=== PATIENT | male | born 1955 | race Caucasian/White ===

== ENCOUNTER 2016-04-27 01:17 | Inpatient (IN) | payer OTHER, MEDICAID ==
[~2016-04-27] VITALS: Ht 182.9 cm; Wt 92.8 kg
[2016-04-27] VITALS (10 sets, daily range): BP systolic 109–134; BP diastolic 60–82; PULSE 71–104; RESP 18–25; O2SAT 95–98
--- NOTE | 2016-04-27 01:41 | ED.REPORT ---
HPI-General Illness Date of Service Apr 27, 2016 ED Provider: Dr. Henry Walden M.D. A 61 year old homeless male with a history of recurrent lung cancer he has decided not to treat presents to the ED via EMS with pleuritic chest pain onset yesterday. The patient also reports exertional shortness of breath and worsening chronic productive cough (2yrs). He denies fever, chills, nausea, vomiting, hemoptysis, or other symptoms. EMS found the patient with a BP of 156/ 50, a pulse of 108, and otherwise normal vital signs. He was given 324mg ASA and Nitro x3, with relief of his pain. Nursing Notes Stated Complaint: CHEST PAIN Chief Complaint: Chest Pain Nursing Notes Reviewed: Yes Allergies: Coded Allergies: chlorhexidine (Verified Allergy, Intermediate, Rash, 04/27/16) "It's that clear stuff that they cleaned my skin off, no the alcohol pads." General Time Seen by MD: 01:40 Chief Complaint Chest pain Hx Obtained From: Patient Arrived By: Ambulance Sudden in Onset?: No Onset Occurred: Yesterday Symptom Duration: Since onset Location: : Chest Quality: Painful, Pleuritic Severity: Current: Moderate Severity: Maximum: Moderate Associated with: Reports: Cough, Shortness of breath, Denies: Fever, Nausea, Vomiting Pertinent Negative: Relieved by nothing Context Related History: Reports Cancer Recent Healthcare: No recent doctor visit Past Medical History Past Medical History Recurrent lung cancer Past Surgical History None reported Smoking History Current Every Day Smoker Social History Alcohol Use: >5 per day Other Social History: Homeless Ambulatory Status Independent Review of Systems + Chronic productive cough Full Review of Systems Constitutional: Denies: Chills, Fever Respiratory: Reports: Pleuritic pain, Shortness of breath (Exertional), Denies: Hemoptysis Cardiovascular: Reports: Chest pain GI: Denies: Nausea, Vomiting Complete sys rev & neg: except as marked. Physical Exam Vital Signs Vital Signs Date Time Temp Pulse Resp B/P Pulse Ox O2 Delivery O2 Flow Rate FiO2 04/27/16 02:31 103 25 97 Room Air 04/27/16 01:33 36.9 104 18 109/67 97 Room Air Initial VS: Reviewed Head / Eyes: Atraumatic, Normocephalic ENT: Conjunctiva normal, No scleral icterus Neck: Supple, Full range of motion Extremities: Vascular intact, Neuro intact, No swelling Skin: Warm, Dry, No cyanosis Neurologic: Alert, Oriented, Nonfocal Psychiatric: Mood/affect normal, Behavior normal, Normal thought content General/Constitutional: Awake, Alert Respiratory / Chest: No respiratory distress Splinting and obvious discomfort with breathing Dull breath sounds at right base Cardiovascular: Heart rate NL, Regular rhythm, Heart sounds NL Abdomen: Soft Tenderness/Guarding/Rebound: Positive: Tender diffuse, Tender epigastric (Worst ) Interpretation & Diagnostics Lab Results Interpretation Result Diagram: 04/27/16 0230 04/27/16 0230 Test 04/27/16 02:30 White Blood Count 13.6th/mm3 (3.8-10.1) Red Blood Count 4.30mil/mm3 (4.40-5.80) Hemoglobin 13.4g/dL (13.8-17.2) Hematocrit 39.2% (41.0-50.0) Mean Corpuscular Volume 91.2fL (81-100) Mean Corpuscular Hemoglobin 31.2pg (27.0-35.0) Mean Corpuscular Hemoglobin Concent 34.2% (32.0-37.0) Red Cell Distribution Width 14.0% (12.3-15.4) Platelet Count 204bil/L (150-400) Neutrophils (%) (Auto) 77.2% (40-74) Lymphocytes (%) (Auto) 12.3% (14-46) Monocytes (%) (Auto) 9.4% (4-12) Eosinophils (%) (Auto) 0.6% (0-5) Basophils (%) (Auto) 0.2% (0-3) Sodium Level 135mEq/L (134-144) Potassium Level 4.0mEq/L (3.5-5.2) Chloride Level 99mEq/L (97-108) Carbon Dioxide Level 21mmol/L (18-29) Blood Urea Nitrogen 13mg/dL (8-27) Creatinine 0.58mg/dL (0.76-1.27) Estimat Glomerular Filtration Rate 152mL/min (>59) Glucose Level 106mg/dL (60-99) Calcium Level 8.9mg/dL (8.5-10.1) Magnesium Level 1.7mg/dL (1.6-2.6) Total Bilirubin 0.6mg/dL (0.0-1.2) Aspartate Amino Transf (AST/SGOT) 37U/L (0-50) Alanine Aminotransferase (ALT/SGPT) 18U/L (0-44) Alkaline Phosphatase 112U/L (25-160) Troponin T 0.010ug/L (0.0-0.011) Total Protein 7.2g/dL (6.4-8.4) Albumin 3.9g/dL (3.4-5.0) Lipase 31U/L (13-60) Hold Sanchez Top Tube Received (Received) ECG Interpretation ECG Interpretation: Ectopic atrial tachycardia, unifocal rate 103 Left axis deviation Nonspecific ST and T-wave changes in lateral leads Time: 01:48 Interpreted by: ED physician X-Ray Chest Interpretation Chest Xray Interpretation: Right pleural effusion and mass No pneumothorax View: AP & lat Interpretation / Wet Read by: Wet read ED physician CT Chest Interpretation CONCLUSION: No CT evidence of pulmonary emboli. Large right pleural effusion with compression atelectasis of the adjacent lung. Right perihilar mass with probable developing postobstructive pneumonia. Transmitted to ED by Solomon Diego M.D. at 04/27/2016 - 4:23:44 AM PDT Study type: CT pulm angiogram Interpretation / Wet Read by: Interpret - Radiologist CT Abd / Pelvis Interpretation CONCLUSION: There appears to be slight wall thickening of the gallbladder with some adjacent haziness/inflammation/fluid raising the possibility of early cholecystitis. There is some free fluid in the pelvis. There is a right pleural effusion compression atelectasis of the adjacent lung in the right perihilar mass with probable developing perihilar postobstructive pneumonia. Findings discussed with Dr. Walden at 04/27/2016 4:26:45 PM PDT. He states the patient is quite tender in the right upper quadrant. Study type: Abdominal CT IV contrast Interpretation / Wet Read by: Interpret - Radiologist, Storm w radiologist Re-Eval/Medical Decision Med Decision/Clinical Course 61-year-old with recurrent lung cancer, and self elected not treatment of that lung cancer, presents with a sharp pleuritic pain of relatively sudden onset. He has pain also in his epigastrium and right upper quadrant on palpation. CT angios shows no evidence of pulmonary embolus, but postobstructive pneumonia is present. Cholecystitis is suspected based on the abdominal CAT scan. No other significant findings. He had these possibilities discussed in detail in light of his election not to treat his cancer. He is willing to receive antibiotics for her pneumonia, and if he needed a cholecystectomy, he would undergo that as well. In general, he wants DO NOT RESUSCITATE status in the event of an actual arrest. A POLST form was filled out to that effect. Time of Eval: 04:30 Patient Status: Condition improved Re-Evaluation/Progress Note: Patient rechecked. He is feeling much better. Discussed with patient CT, x-ray, and lab results, diagnosis, and plan for admit. Patient agrees with plan for care and all questions were addressed. Time of Eval: 05:20 Patient Status: Condition improved Re-Evaluation/Progress Note: Discussed with patient POLST form and resuscitation status. Patient is DNR. Consultation : Referral / Consult Name: Ximena Fisher MD Consulted With: Hospitalist Call Returned at: 04:40 Range Manager: Agrees with eval, Agrees with plan, Accepts admit Counseled Regarding: Diagnosis, Lab results, Need for admission Discharge & Departure Shift Change Sign-Out Response to Therapy: Improved Primary Impression: Postobstructive pneumonia Additional Impressions: Lung cancer Laterality: right Lung location: lower lobe of lung Qualified Code: C34.31 - Malignant neoplasm of lower lobe, right bronchus or lung Pleural effusion Cholecystitis Disposition: ADMITTED TO HOSPITAL Discharge Condition All VS Reviewed: Yes Condition: Improved Referrals: [facility] Attestation Portions of this note were transcribed by Mary Sherman. I, Dr. Walden, personally performed the history, physical exam, and medical decision-making; I reviewed and confirmed the accuracy of the information in the transcribed note. Signed by: Nate Clement, 04/27/2016, 05:00 copies to: [facility] Henry Walden MD Apr 27, 2016 01:40 MARY SHERMAN Apr 27, 2016 01:49
[2016-04-27] MEDS ORDERED: Albuterol-Ipratropium 3 mL Inhalation Solution NEB ONE (02:25)
[2016-04-27] MEDS ORDERED: Albuterol 2.5 mg/3 mL Inhalation Solution NEB ONE (02:25)
[2016-04-27] MEDS ORDERED: Dexamethasone Inj 10 MG in 0.9% Sodium Chloride-Pha MIX 50 ML IV ONE (02:25)
[2016-04-27 02:44] LABS: BASOPHILS % (AUTO) 0.2 % (0-3); EOSINOPHILS % (AUTO) 0.6 % (0-5); MONOCYTES % (AUTO) 9.4 % (4-12); Mean Corpuscular Hemoglobin 31.2 pg (27.0-35.0); Mean Corpuscular Volume 91.2 fL (81-100); NEUTROPHILS % (AUTO) 77.2 % (40-74); Platelet Count 204 bil/L (150-400)
[2016-04-27 03:16] LABS: Magnesium 1.7 mg/dL (1.6-2.6); TROPONIN T 0.01 ug/L (0.0-0.011)
[2016-04-27] MEDS ORDERED: Piperacillin-Tazo 3.375 Gm Inj 3.375 GM in Dextrose 5% Minibag Plus 50 ML IV ONE (04:40)
[2016-04-27] MEDS ORDERED: Azithromycin Inj 500 MG in Dextrose 5% w/Vial Mate 250 ML IV ONE (04:40)
[2016-04-27] MEDS: Multivit-Miner-Folic Acid-Iron Tablet PO SCH ×2 (05:10→10:10)
[2016-04-27] MEDS ORDERED: Ondansetron 2 mg/mL 2 mL Inj IVPUSH PRN ×2 (05:10→05:20)
[2016-04-27] MEDS ORDERED: Lactated Ringer's 1,000 ML IV SCH (05:16)
[2016-04-27] MEDS ORDERED: HYDROcodone-APAP 5-325 mg Tablet PO PRN (05:20)
[2016-04-27] MEDS ORDERED: Alum-Mag Hydrox-Simeth 30 mL Suspension PO PRN (05:20)
--- NOTE | 2016-04-27 05:41 | PCM.HPMED ---
Subjective Date of Service Apr 27, 2016 Primary Provider: Admitting Physician: Ximena Fisher MD Primary Care Physician: Nopcp Attending Physician: Ximena Fisher MD Admit Status: From the Emergency Department, Full Admit, Remote Telemetry Chief Complaint: Increasing cough and right upper quadrant abdominal pain History of Present Illness: This is a 61-year-old male has a history of lung cancer diagnosed in 2010. He had undergone radiation therapy along with tumor resection and chemotherapy and approximately for one year he was in remission but recurred and did not want to undergo any further treatments. He is homeless currently and presents with several month history of aggressive cough. He over the past few days has developed right upper quadrant abdominal pain. Denies any fevers chills. Denies any nausea vomiting. He denies any hemoptysis. His evaluation in the emergency room includes a CTA of chest PE protocol which reveals no evidence of pulmonary emboli. Large right pleural effusion with compression atelectasis of the adjacent lung is noted. Right perihilar mass with probable developing postobstructive is seen. CT of abdomen and pelvis reveals slight wall thickening of the gallbladder with some adjacent haziness and inflammation and fluid raising the possibility of early cholecystitis. WBCs is 13.6 with 77% polys 12% lymphs. Review of Systems: Patient denies any alteration in bowel movements. Denies any urinary frequency or burning. Denies any prior history of alcohol withdrawal. All other review of systems are reviewed and are negative except for as in history of present illness. Allergies Coded Allergies: chlorhexidine (Verified Allergy, Intermediate, Rash, 04/27/16) "It's that clear stuff that they cleaned my skin off, no the alcohol pads." Home Medications None PMH History of lung cancer diagnosed in 2010 History of alcohol dependence drinks half fifth of vodka daily Tobacco dependence Family History No history of cardiovascular disease Social History Hx Alcohol Use: Yes (1/2 a fifth per day) Hx Substance Use: Yes (marijuana, sometimes meth) Smoking Status: Current Every Day Smoker Living Arrangement: Alone Homeless Exam Vital Signs Vital Sign - Last Date Time Temp Pulse Resp B/P Pulse Ox O2 Delivery O2 Flow Rate FiO2 04/27/16 05:08 36.5 100 20 129/76 95 Room Air Exam Constitutional: Middle-aged male who is disheveled but pleasant and cooperative Head: Normocephalic/atraumatic Eyes: PERRLA DC EOMI Mouth: Dry mucosa Neck: Carotids plus over 4 without bruits Chest :reveals decreased breath sounds approximately third way up his right base and otherwise added expiratory wheezes diffusely Cor: Regular rate and rhythm S1-S2 without murmur Abdomen: Soft there is tenderness in the epigastrium and right upper quadrant, no rebound no guarding bowel sounds are present Extremities: Trace pedal edema Skin: No rashes Psych: Mood and affect are appropriate Neuro: Alert and oriented 3, motor strength is intact bilaterally Lab and Diagnostics Labs Laboratory Tests 72 Hours Test 04/27/16 02:30 White Blood Count 13.6th/mm3 (3.8-10.1) Red Blood Count 4.30mil/mm3 (4.40-5.80) Hemoglobin 13.4g/dL (13.8-17.2) Hematocrit 39.2% (41.0-50.0) Mean Corpuscular Volume 91.2fL (81-100) Mean Corpuscular Hemoglobin 31.2pg (27.0-35.0) Mean Corpuscular Hemoglobin Concent 34.2% (32.0-37.0) Red Cell Distribution Width 14.0% (12.3-15.4) Platelet Count 204bil/L (150-400) Neutrophils (%) (Auto) 77.2% (40-74) Lymphocytes (%) (Auto) 12.3% (14-46) Monocytes (%) (Auto) 9.4% (4-12) Eosinophils (%) (Auto) 0.6% (0-5) Basophils (%) (Auto) 0.2% (0-3) Sodium Level 135mEq/L (134-144) Potassium Level 4.0mEq/L (3.5-5.2) Chloride Level 99mEq/L (97-108) Carbon Dioxide Level 21mmol/L (18-29) Blood Urea Nitrogen 13mg/dL (8-27) Creatinine 0.58mg/dL (0.76-1.27) Estimat Glomerular Filtration Rate 152mL/min (>59) Glucose Level 106mg/dL (60-99) Calcium Level 8.9mg/dL (8.5-10.1) Magnesium Level 1.7mg/dL (1.6-2.6) Total Bilirubin 0.6mg/dL (0.0-1.2) Aspartate Amino Transf (AST/SGOT) 37U/L (0-50) Alanine Aminotransferase (ALT/SGPT) 18U/L (0-44) Alkaline Phosphatase 112U/L (25-160) Troponin T 0.010ug/L (0.0-0.011) Total Protein 7.2g/dL (6.4-8.4) Albumin 3.9g/dL (3.4-5.0) Lipase 31U/L (13-60) Hold Sanchez Top Tube Received (Received) Result Diagram: 04/27/16 0230 04/27/16 0230 X-Rays, CTs and MRIs See history of present illness 12-lead ECG Sinus at a rate of 103, QTC is 485 Assessment & Plan # Postobstructive pneumonia with right-sided pleural effusion, acute, present on admission - We will treat with IV Zosyn and IV azithromycin Obtain sputum for Gram stain and culture, PCR respiratory, urine for Legionella antigen, urine for strep pneumonia antigen Consider thoracentesis of pleural effusion for therapeutic and diagnostic reasons Blood culture 2 # Acute cholecystitis, present on admission Currently on IV Zosyn Check abdominal ultrasound today Consider general surgery consultation after ultrasound is obtained # History of lung carcinoma, chronic, present on admission Patient has made the decision of years ago for further treatment and appears to that decision # EtOH dependence, chronic, present on admission Placed on CIWA protocol and monitor for signs and symptoms of alcohol withdrawal We will give thiamine, multiple vitamin, folate limitation Check ammonia level, blood alcohol level, urine drug screen # Tobacco dependence, chronic, present on admission We will place on nicotine patch topically daily # DVT prophylaxis We will place on subcutaneous heparin for likely and if INR,PTT come back elevated will DC # CODE STATUS Discussed with patient and wishes DNR/DNI Pain Evaluation: Adequate Pain Control GI Prophylaxis: H2 [place] VTE Prophylaxis: Sub-Q Heparin (Unfractionated) VTE Mechanical Devices: Intermittant Pneumatic CD Resuscitation Status: DNR/DNI:Do Not Resuscitate/Intubate Time spent 60 minutes Ximena Fisher MD Apr 27, 2016 05:41
[2016-04-27 06:32] LABS: INR 0.94 ratio
[2016-04-27] MEDS: 0.9% Sodium Chloride 1,000 ML IV SCH ×3 (06:42→21:33)
--- NOTE | 2016-04-27 07:22 | NUR ---
ADMIT NOTE [place] [facility] [place] [facility]600. Pt alert and oriented. Pt was able to ambulate from ER stretcher to bed. Pt uses cane for ambulatory aid. VS obtained. Pt on RA, VSS. Pt placed on remote telemetry, school lunch monitor notified. IVF administered. Pt NPO, explained that possible tests may be ordered that PO intake may interfere with. Swabs sent for respiratory PCR panel. Pt placed on respiratory precautions, explained to pt. UA sent. Pt aware that sputum sample needed, specimen cup at bedside. Pt mentioned wound to left great toe. Pt states "it was from joyce bite, but it got infected about 4 weeks ago, and is just not healing." Wound consult ordered. Call light in reach. Intentional rounding.
[2016-04-27 08:23] LABS: APPEARANCE,URINE CLEAR (CLEAR,HAZY); COLOR,URINE STRAW (YELLOW); OCCULT BLOOD,URINE NEGATIVE (NEGATIVE); UROBILINOGEN,URINE NORMAL (NORMAL)
[2016-04-27] MEDS ORDERED: Magnesium Sulf 2 Gm/50mL Water 2 GM in IV Premix 1 EACH IV ONE (08:35)
[2016-04-27] MEDS ORDERED: IBUP200C PO (08:53)
[2016-04-27] MEDS ORDERED: ALBU8.5H2 INHALATION (08:53)
--- NOTE | 2016-04-27 09:57 | DRSVH ---
PROCEDURE: X-RAY CHEST, TWO VIEWS ([id number]) INDICATIONS: PLEURITC CHEST PAIN, LUNG CANCER TECHNIQUE: 2 views of the chest were acquired. COMPARISON: None. FINDINGS: Surgical changes and devices: Left chest Port-A-Cath with tube tip projected over the lower SVC. Lungs and pleura: Large right perihilar mass is present and there is a small right pleural effusion a nd peripheral and basilar airspace opacity. Left lung is clear. Mediastinum: Mediastinal contours are normal. Heart size is normal. Bones and chest wall: No suspicious bony abnormalities. Soft tissues appear unremarkable. IMPRESSION: Large right perihilar mass present with small right pleural effusion and peripheral/basil ar airspace opacity likely related to developing postobstructive pneumonia. Correlate clinically. Dictated by: Tonio TURNER Interpreted: Viridiana Herman MD on 04/27/2016 at 9:55 Transcribed by: DIEGO on 04/27/2016 at 9:56 Approved by: Viridiana Herman M.D. on 04/27/2016 at 21:14
[2016-04-27] MEDS: Famotidine Inj 20 MG in IV Premix 1 EACH IV SCH ×2 (10:05→21:34)
[2016-04-27] MEDS: Heparin 5,000 Unit/mL Inj SUBQ SCH ×3 (10:08→23:52)
--- NOTE | 2016-04-27 12:09 | DRSVH ---
PROCEDURE: CT ANGIO CHEST PULMONARY EMBOLISM ([id number]) INDICATIONS: cp, sob, lung ca recurrent TECHNIQUE: After the administration of intravenous contrast, 2 mm thick sections acquired from the pulmonary api alireza to the posterior costophrenic angles. 3-dimensional maximum intensity projection (MIP) coronal a nd sagittal reformats were then acquired through the thorax. For radiation dose reduction, the follo wing was used: automated exposure control, adjustment of mA and/or kV according to patient size. COMPARISON: None. FINDINGS: Image quality: Excellent. Pulmonary arteries: Pulmonary arteries are normal in size, and demonstrate no intraluminal filling d efects to suggest central pulmonary embolism. Lungs and pleura: There is a mild/moderate right pleural effusions with areas of superimposed consoli dation including a right suprahilar focus of consolidative density. Mediastinum: Heart size is normal, without pericardial effusion. No mediastinal or hilar adenopathy . Thoracic aorta is normal in caliber and enhancement. Esophagus is normal in caliber, without hiat al hernia. Bones and chest wall: No suspicious bony lesions. Ribs and thoracic spine appear intact throughout. Thyroid gland is unremarkable. No axillary or supraclavicular adenopathy. Abdomen: Visualized upper abdominal solid organs appear normal in the early arterial phase of enhanc ement. IMPRESSION: 1. No visualized pulmonary embolism. 2. Moderate right pleural effusion with areas of consolidative density most prominent in the right pe rihilar region. While this could represent pneumonia and/or atelectasis, underlying neoplastic mass s hould be considered. No priors are available for comparison. Clinical interval imaging followup is re commended to document resolution or evaluation of potential underlying mass. Dictated by: Viridiana Herman M.D. on 04/27/2016 at 12:06 Approved by: Viridiana Herman M.D. on 04/27/2016 at 12:08
--- NOTE | 2016-04-27 12:12 | DRSVH ---
PROCEDURE: CT ABDOMEN AND PELVIS WITH CONTRAST ([id number]) INDICATIONS: epigastric pain, lung ca TECHNIQUE: After the administration of intravenous contrast, 5 mm thick sections acquired from the diaphragm to the symphysis. 5 mm coronal and sagittal reformats were acquired. For radiation dose reduction, the following was used: automated exposure control, adjustment of mA and/or kV according to patient siz e. COMPARISON: None. FINDINGS: Image quality: Excellent. ABDOMEN: Lung bases: Partially visualized moderate right effusion with superimpose consolidative densities mary beth ecially in the right superhilar region are noted. Solid organs: Liver and spleen are normal in size and enhancement. Gallbladder demonstrates a mild appearance of wall thickening.. Biliary system is non dilated. Pancreas enhances normally. No adre nal nodules. Kidneys demonstrate normal size and enhancement, without hydronephrosis. Peritoneum and bowel: Bowel loops demonstrate normal wall thickness and caliber. Mild dependent pelv ic fluid is present. Nodes and vessels: No retroperitoneal or mesenteric adenopathy by size criteria. Aorta and inferior vena cava are normal in size. Miscellaneous: No ventral hernias. PELVIS: Genitourinary: Bladder wall thickness is normal. Miscellaneous: No inguinal hernias or adenopathy. Bones: No suspicious bony lesions. No vertebral body compression fractures. IMPRESSION: 1. Moderate right pleural effusion with areas of superimpose consolidative density including the righ t perihilar region. While this could represent compressive atelectasis and/or developing pneumonia, a cristopher of underlying mass lesion such as neoplasm cannot be excluded. Recommend continued neutral imagin g and clinical followup to document resolution. 2. Mild appearance of gallbladder wall thickening and trace pericholecystic stranding. No visualized stones. Findings could be related to early changes of cholecystitis. Ultrasound may be helpful for ad ditional evaluation. Dictated by: Viridiana Herman M.D. on 04/27/2016 at 12:08 Approved by: Viridiana Herman M.D. on 04/27/2016 at 12:10
[2016-04-27] MEDS ORDERED: Piperacillin-Tazo 3.375 Gm Inj 3.375 GM in Dextrose 5% Minibag Plus 50 ML IV SCH (13:00)
--- NOTE | 2016-04-27 13:52 | NUR ---
Wound Care Wound evaluation orders received, pt seen at bedside. 61 yo male admitted with difficulty breathing and a history of lung cancer. Reports getting his left foot frostbitten 4 weeks ago or so. Patient presents with a 1.5 cm skin defect at his left great toe tip with surrounding callous formation. Ulcer is superficial,does not drain and was cleaned and covered with xeroform and bandaid. Likely ulcer is associated with his frostbite, is not infected at this time. Should heal without difficulty. Nursing to change dressing daily.
--- NOTE | 2016-04-27 14:46 | DRSVH ---
PROCEDURE: US ABDOMEN, LIMITED ([id number]) INDICATIONS: cholecystitis TECHNIQUE: Real-time focused scanning was performed of the abdomen, with image documentation. COMPARISON: [facility], CT, CT ABD PELVIS W CON, 04/27/2016, 3:28. FINDINGS: Limited exam demonstrates no stones. Gallbladder wall is thickened and edematous measuring 9 mm. No biliary dilatation. IMPRESSION: Abnormal appearance of the gallbladder with thickened edematous gallbladder wall. Acalc ulus cholecystitis cannot be excluded. Correlate clinically. Dictated by: Tonio TURNER Interpreted: Viridiana Herman MD on 04/27/2016 at 14:44 Transcribed by: DIEGO on 04/27/2016 at 14:46 Approved by: Viridiana Herman M.D. on 04/27/2016 at 21:50
--- NOTE | 2016-04-27 16:03 | CONS ---
[address] [address] CONSULTATION REPORT PATIENT: CHRIS BARFIELD : 1955 MR#: [id number] ADMIT: 04/27/2016 JOB ID: [id number] DATE OF SERVICE: 04/27/2016 CHIEF COMPLAINT/IDENTIFICATION: Dr. Mchugh has asked me to see this 61-year-old man with possible symptomatic gallbladder disease. HISTORY OF PRESENT ILLNESS: The patient has known unresectable right lung cancer that has progressed on chemotherapy, for which he has decided to have no further chemotherapy. He notes for several weeks that he has had some midepigastric pain primarily when he bends over or when he leans forward. He had thought that this was related to pressure on his xiphoid. Over the past week this pain has gotten worse and in discussions with him, it is difficult to sort out how much of this is pain and how much of this is shortness of breath. Yesterday, he was having so much chest pain around the xiphoid when he would try to take a deep breath that he was concerned that he was having a heart attack. He was brought to the hospital, where he was admitted to the Medicine service here. After workup with a CT angiogram of the chest for pulmonary emboli, he likely has a postobstructive pneumonia on the right lung. As well, his CAT scan demonstrated some thickening of the gallbladder. He was admitted to the Hospitalist service on IV Zosyn and azithromycin. This morning he was evaluated for possible cholecystitis with an ultrasound, and I am asked to follow up on those results. PAST MEDICAL HISTORY: History of alcohol dependence, history of tobacco dependence, has started smoking again since the decision not to proceed with chemotherapy was initiated. HOME MEDICATIONS: None. ALLERGIES: CHLORHEXIDINE. SOCIAL HISTORY: He drinks alcohol on a daily basis, and currently smokes every day and occasionally uses marijuana and methamphetamine. Reportedly does not have a home. FAMILY HISTORY: Noncontributory. REVIEW OF SYSTEMS: He has some peripheral neuropathy of the feet, and had some frostbite of his left great toe in the past few months. PHYSICAL EXAMINATION: BMI is 27.4. Vital signs are within normal limits, though his pulse is in the high 90s. His room air saturation is 95-98. His sclerae are clear. He has a prominent xiphoid, mild mid epigastric tenderness to palpation, no real Villafana sign, no right upper quadrant tenderness. LABORATORIES: His white count is 13, his hematocrit is 39. Chemistries show normal electrolytes. Normal LFT. Lipase was 31. IMAGING: I have reviewed his chest CT, his abdominal CT, his abdominal ultrasound. The latter two studies demonstrate that he does have gallbladder wall thickening. Neither study shows any stones. There seems to be some trace pericholecystic stranding on the CT by report, though I am not quite sure that is what I would call it, and his ultrasound demonstrates no pericholecystic fluid but a thickened gallbladder wall to 9 mm, with normal biliary trees. IMPRESSION AND PLAN: I think it is at best a 50/50 proposition that he does have acute acalculous cholecystitis. It is certainly a possibility that should be evaluated by a HIDA scan. If his HIDA scan demonstrates nonvisualization of the gallbladder, I think some consideration should be given to treatment with a cholecystostomy tube, given his underlying lung cancer, as well as the fact that he appears to have an active pneumonia at this point, and there could be some significant issues with general anesthesia. I have ordered a HIDA scan and will follow up after that is obtained.
--- NOTE | 2016-04-27 16:09 | DRSVH ---
PROCEDURE: NM HIDA SCAN WITH CCK PHARMACEUTICAL: 5.6 mCi Tc-99m mebrofenin IV; 1.82 mcg CCK IV. INDICATIONS: R/O acalculous cholecystitis. TECHNIQUE: Following intravenous administration of Tc-99m mebrofenin, sequential anterior abdominal images were obtained. To evaluate the contractile response of the gallbladder in response to Cholecystokinin (CC K), sincalide (0.02 g/kg) was administered by slow intravenous infusion approximately 60 minutes aft er the administration of the radiopharmaceutical. Sequential imaging was continued for [address] the start of CCK infusion. Gallbladder ejection fraction was calculated. COMPARISON: None. FINDINGS: Biliary scan: There is normal tracer uptake and excretion by the liver. There is normal visualizati on of the intrahepatic ducts, common bile duct, and gallbladder. There is normal tracer transit into the duodenum. CCK stimulation: There is normal contractile response of the gallbladder to CCK infusion. The calcu lated gallbladder ejection fraction is 83%; normal values are above 35%. It has been shown that any patient abdominal pain after CCK administration is related to the rate of CCK injection, rather than to any underlying gallbladder disease (Clinical Nuclear Medicine 2012; 37: 63-70. Journal of Nuclear Medicine 2014; 55: 1-9). IMPRESSION: Normal examination. Dictated by: Alissa Watts MD, PhD on 04/27/2016 at 16:07 Approved by: Alissa Watts MD, PhD on 04/27/2016 at 16:08
--- NOTE | 2016-04-27 17:54 | NUR ---
Hyda scan: Patient Had a Hyda scan today to evaluate his Gall Bladder/Abdominal pain. MD interpreted the results which showed that the scan was WNL. Patient has reported no pain today. He was started on full liquid diet.
--- NOTE | 2016-04-27 22:12 | PCM.PNMED ---
Subjective Date of Service Apr 27, 2016 Subjective The patient is feeling a little bit better today over the had severe epigastric pain at the time of admission. He has not had a recurrence. However, he has been getting nothing by mouth today. The patient has no fever no chills no diaphoresis. Exam Vital Signs Vital Sign - Last Date Time Temp Pulse Resp B/P Pulse Ox O2 Delivery O2 Flow Rate FiO2 04/27/16 21:04 36.6 74 18 114/60 97 Room Air Intake and Output 04/26/16 04/26/16 04/27/16 Cumulative From/Thru 15:00 23:00 07:00 04/27/16 01:33 - 04/27/16 06:54 Output Total 550 ml 550 ml Balance -550 ml -550 ml Output Urine Total 550 ml 550 ml Exam General: Patient is in no apparent distress at present time. HEENT: Head is atraumatic and normocephalic. Eyes: Pupils are equally round and reactive to light and accommodation. Extraocular muscles are intact. Sclera are white, anicteric. Subconjunctival mucosa is pink. Ears and nose are unremarkable. Oropharynx: There is no mucosal lesions, there is no thrush, there is no pharyngitis. Neck: Is supple, there are no nodes, or masses or tenderness. Chest: Is significant for a few crackles in the right lung otherwise the lung will are clear to auscultation and percussion. Heart: Rate, rhythm is regular. There is no murmur, rub or gallop. Abdomen: Good bowel sounds are present. Abdomen is soft, nontender, no organomegaly or masses were appreciated. Extremities: Are symmetrical and well perfused. There is no edema, there is no cellulitis, no rash. Neurologic: There are no focal neurological deficits. Cranial nerves II through XII are intact. There are no sensory or motor deficits. Psychiatric: Patients mood is calm and shows no sign of agitation. Genital: Deferred Rectal: Deferred Lab and Diagnostics Result Diagram: 04/27/16 0230 04/27/16 0230 X-Rays, CTs and MRIs See history of present illness 12-lead ECG Sinus at a rate of 103, QTC is 485 Assessment & Plan This is a 61-year-old male has a history of lung cancer diagnosed in 2010. He had undergone radiation therapy along with tumor resection and chemotherapy and approximately for one year he was in remission but recurred and did not want to undergo any further treatments. He is homeless currently and presents with several month history of aggressive cough. He over the past few days has developed right upper quadrant abdominal pain. Denies any fevers chills. Denies any nausea vomiting. He denies any hemoptysis. His evaluation in the emergency room includes a CTA of chest (PE protocol) which revealed no evidence of pulmonary emboli. A small right pleural effusion was seen with compression atelectasis of the adjacent lung is noted. A right perihilar mass with probable developing postobstructive is seen. CT of abdomen and pelvis reveals slight wall thickening of the gallbladder with some adjacent haziness and inflammation and fluid raising the possibility of early cholecystitis. The patient was admitted to the hospital service # Postobstructive pneumonia with right-sided pleural effusion, acute, present on admission - We will treat with IV Zosyn and discontinue IV azithromycin - We will check sputum for Gram stain and culture, PCR respiratory, urine for Legionella antigen, urine for strep pneumonia antigen. We will also ask for MRSA nasopharyngeal screen - We will check Blood culture 2 that are pending # Possible acute cholecystitis, present on admission - Currently on IV Zosyn - Abdominal ultrasound showed thickened gallbladder wall. - I have asked Dr. Stewart Summers of general surgery to see the patient in consultation. He ordered a HIDA scan which was negative. # History of lung carcinoma, chronic, present on admission - Patient has made the decision of years ago for further treatment and appears to that decision # EtOH dependence, chronic, present on admission - Placed on CIWA protocol and monitor for signs and symptoms of alcohol withdrawal - We will give thiamine, multiple vitamin, folate limitation - Check ammonia level, blood alcohol level, urine drug screen # Tobacco dependence, chronic, present on admission - We will place on nicotine patch topically daily # DVT prophylaxis - We will place on subcutaneous heparin for likely and if INR,PTT come back elevated will DC # CODE STATUS - Discussed with patient and wishes DNR/DNI - We will consult palliative care Pain Evaluation: Adequate Pain Control GI Prophylaxis: H2 modesto VTE Prophylaxis: Sub-Q Heparin (Unfractionated) VTE Mechanical Devices: Intermittant Pneumatic CD Resuscitation Status: DNR/DNI:Do Not Resuscitate/Intubate Henry Mchugh MD Apr 27, 2016 22:12
[2016-04-27] MEDS: Piperacillin-Tazo 3.375 Gm Inj 3.375 GM in Dextrose 5% Minibag Plus 50 ML IV SCH (23:52)
[2016-04-28] VITALS (7 sets, daily range): BP systolic 104–144; BP diastolic 52–87; PULSE 68–113; RESP 16–18; O2SAT 97–99
--- NOTE | 2016-04-28 00:58 | PROG NOTE ---
[address] [address] PROGRESS NOTE PATIENT: CHRIS BARFIELD : 1955 MR#: [id number] ADMIT: 04/27/2016 JOB ID: [id number] DATE: PROGRESS NOTE: This is in followup to the consultation earlier this afternoon. HIDA scan has been obtained and I reviewed the images, as well as the report. His nuclear medicine HIDA scan with CCK shows good visualization of the gallbladder and gallbladder ejection fraction of 83%. This effectively rules out acalculous cholecystitis and likely rules out chronic gallbladder dysfunction as the cause of his epigastric pain. I suspect that this is a combination of his xiphoid process and referred pain, as well as subjective description of what is essentially shortness of breath when he sits forward. I will discuss these findings with the patient and give my final recommendation for no intervention regarding his gallbladder.
--- NOTE | 2016-04-28 04:47 | NUR ---
Uneventful Night: Pt rested intermittently through the night with no complaints of pain or discomfort. Denies SOB, n.v. CIWA: 1, mild anxiety. Call light within reach. Significant other at bedside. Pleasant and cooperative with care.
[2016-04-28] MEDS: 0.9% Sodium Chloride 1,000 ML IV SCH ×2 (05:53→18:11)
[2016-04-28 06:31] LABS: BASOPHILS % (AUTO) 0.1 % (0-3); EOSINOPHILS % (AUTO) 0 % (0-5); MONOCYTES % (AUTO) 7.5 % (4-12); Mean Corpuscular Hemoglobin 30.7 pg (27.0-35.0); Mean Corpuscular Volume 92.4 fL (81-100); NEUTROPHILS % (AUTO) 83.3 % (40-74); Platelet Count 220 bil/L (150-400)
[2016-04-28 06:57] LABS: TROPONIN T 0.01 ug/L (0.0-0.011)
[2016-04-28 07:08] LABS: Magnesium 2.1 mg/dL (1.6-2.6)
[2016-04-28] MEDS ORDERED: Azithromycin Inj 500 MG in Dextrose 5% w/Vial Mate 250 ML IV SCH (08:30)
[2016-04-28] MEDS: Famotidine Inj 20 MG in IV Premix 1 EACH IV SCH ×2 (09:18→22:11)
[2016-04-28] MEDS: Multivit-Miner-Folic Acid-Iron Tablet PO SCH (09:22)
[2016-04-28] MEDS: Heparin 5,000 Unit/mL Inj SUBQ SCH ×2 (09:25→17:27)
--- NOTE | 2016-04-28 10:04 | NUR ---
Palliative Care Palliative Care was asked by Dr Mchugh to see patient. However, Dr Stern has reviewed case and determined referral is not appropriate for Palliative to see. Dr Stern discussed this with Dr Mchugh. Order cancelled. Ebony Haque
[2016-04-28] MEDS: Piperacillin-Tazo 3.375 Gm Inj 3.375 GM in Dextrose 5% Minibag Plus 50 ML IV SCH ×2 (13:22→17:26)
--- NOTE | 2016-04-28 17:49 | NUR ---
Pain: Patient stated that he is "only having non significant mild abdominal pain " . Patient has been up ad michelle in his room. He is tolerating his General diet with out issues. He continues to be on IV ABT for his Pneumonia.
--- NOTE | 2016-04-28 18:02 | PCM.PNMED ---
Subjective Date of Service Apr 28, 2016 Subjective The patient got somewhat emotional when talking about his current living situation and his diagnosis. He at this point in his life does not want any help he wants to go back to live in the [address] that is pitched and the property of a friend of his here in [place]. He likes to be in the open air states that he breathes better, even though he was continued to smoke up until this admission. The patient gives no indication that he is going to quit smoking after discharge even though encouraged to do so. Exam Vital Signs Vital Sign - Last Date Time Temp Pulse Resp B/P Pulse Ox O2 Delivery O2 Flow Rate FiO2 04/28/16 13:27 36.9 113 18 143/75 99 Room Air Intake and Output 04/27/16 04/27/16 04/28/16 Cumulative From/Thru 14:59 22:59 06:59 04/27/16 01:33 - 04/28/16 05:39 Intake Total 400 ml 600 ml 1000 ml Output Total 1550 ml 2100 ml Balance 400 ml -950 ml -1100 ml Intake Oral 400 ml 600 ml 1000 ml Output Urine Total 1550 ml 2100 ml # Voids 3 3 Exam General: Patient is in no apparent distress at present time. When talking about his current condition he become somewhat emotionally labile. HEENT: Head is atraumatic and normocephalic. Eyes: Pupils are equally round and reactive to light and accommodation. Extraocular muscles are intact. Sclera are white, anicteric. Subconjunctival mucosa is pink. Ears and nose are unremarkable. Oropharynx: There is no mucosal lesions, there is no thrush, there is no pharyngitis. Neck: Is supple, there are no nodes, or masses or tenderness. Chest: Breath sounds are diminished in the right lung with few scattered crackles in the right lung. The left lung will are clear to auscultation and percussion. Heart: Rate, rhythm is regular. There is no new murmur, rub or gallop. Abdomen: Good bowel sounds are present. Abdomen is soft, nontender, no organomegaly or masses were appreciated. Extremities: Are symmetrical and well perfused. There is no edema, there is no cellulitis, no rash. Neurologic: There are no focal neurological deficits. Cranial nerves II through XII are intact. There are no sensory or motor deficits. Psychiatric: Patients mood is calm and shows no sign of agitation. Genital: Deferred Rectal: Deferred Lab and Diagnostics Result Diagram: 04/28/16 0550 04/28/16 0550 Microbiology Sputum culture shows normal suzie Blood Cultures are negative Strep pneumoniae urinary antigen is negative Nasopharyngeal swab for respiratory pathogens by PCR was negative X-Rays, CTs and MRIs See history of present illness 12-lead ECG Sinus at a rate of 103, QTC is 485 Assessment & Plan This is a 61-year-old male has a history of lung cancer diagnosed in 2010. He had undergone radiation therapy along with tumor resection and chemotherapy and approximately for one year he was in remission but recurred and did not want to undergo any further treatments. He is homeless currently and presents with several month history of aggressive cough. He over the past few days has developed right upper quadrant abdominal pain. Denies any fevers chills. Denies any nausea vomiting. He denies any hemoptysis. His evaluation in the emergency room includes a CTA of chest (PE protocol) which revealed no evidence of pulmonary emboli. A small right pleural effusion was seen with compression atelectasis of the adjacent lung is noted. A right perihilar mass with probable developing postobstructive is seen. CT of abdomen and pelvis reveals slight wall thickening of the gallbladder with some adjacent haziness and inflammation and fluid raising the possibility of early cholecystitis. The patient was admitted to the hospital service # Postobstructive pneumonia with right-sided pleural effusion, acute, present on admission - We will continue to treat with IV Zosyn and discontinue IV azithromycin - We will check sputum for Gram stain and culture, PCR respiratory, urine for Legionella antigen, urine for strep pneumonia antigen. We will also ask for MRSA nasopharyngeal screen - We will check Blood culture 2 final results that are pending - We will check repeat chest x-ray in a.m. # Possible acute cholecystitis, present on admission - Currently on IV Zosyn - Abdominal ultrasound showed thickened gallbladder wall. - I have asked Dr. Stewart Summers of general surgery to see the patient in consultation. He ordered a HIDA scan which was negative. # History of lung carcinoma, chronic, present on admission - Patient has previously undergone resection followed by radiation therapy and chemotherapy. He has decided a long time ago that he will no longer to pursue any of these treatments for his lung carcinoma. # EtOH dependence, chronic, present on admission - Placed on CIWA protocol and monitor for signs and symptoms of alcohol withdrawal - We will give thiamine, multiple vitamin, folate limitation - Check ammonia level, blood alcohol level, urine drug screen # Tobacco dependence, chronic, present on admission - We will place on nicotine patch topically daily # DVT prophylaxis - We will continue on subcutaneous heparin # CODE STATUS - Discussed with patient and wishes DNR/DNI Disposition: We will continue IV antibiotics for the next 24-48 hours. Will repeat chest x-ray in a.m. and if improved will begin to think about transition to oral antibiotics to cover for his postobstructive pneumonia. Pain Evaluation: Adequate Pain Control GI Prophylaxis: H2 [place] VTE Prophylaxis: Sub-Q Heparin (Unfractionated) VTE Mechanical Devices: Intermittant Pneumatic CD Resuscitation Status: DNR/DNI:Do Not Resuscitate/Intubate Henry Mchugh MD Apr 28, 2016 18:02
[2016-04-29] MEDS: Piperacillin-Tazo 3.375 Gm Inj 3.375 GM in Dextrose 5% Minibag Plus 50 ML IV SCH ×2 (02:12→08:39)
[2016-04-29] MEDS: Heparin 5,000 Unit/mL Inj SUBQ SCH ×2 (02:13→08:40)
[2016-04-29] MEDS: 0.9% Sodium Chloride 1,000 ML IV SCH (02:15)
[2016-04-29 04:12] VITALS: BP 142/84; PULSE 100; RESP 18; O2SAT 97
[2016-04-29 06:17] LABS: BASOPHILS % (AUTO) 0.2 % (0-3); EOSINOPHILS % (AUTO) 0.2 % (0-5); MONOCYTES % (AUTO) 7.6 % (4-12); Mean Corpuscular Hemoglobin 30.8 pg (27.0-35.0); Mean Corpuscular Volume 93.3 fL (81-100); NEUTROPHILS % (AUTO) 68.8 % (40-74); Platelet Count 216 bil/L (150-400)
[2016-04-29 06:35] LABS: Magnesium 1.8 mg/dL (1.6-2.6)
[2016-04-29] MEDS: Famotidine Inj 20 MG in IV Premix 1 EACH IV SCH (07:43)
--- NOTE | 2016-04-29 08:00 | NUR ---
restful night pt has been resting most the this shift. no c/o pain. O2 sat was in mid 90s, no SOB noted.
[2016-04-29] MEDS: Multivit-Miner-Folic Acid-Iron Tablet PO SCH (08:40)
--- NOTE | 2016-04-29 10:46 | NUR ---
Off Unit: Patient transported to radiology via wheelchair @ approx 1045 for chest x-ray. VSS. No apparent distress at time of transport.
--- NOTE | 2016-04-29 11:35 | DRSVH ---
PROCEDURE: X-RAY CHEST, TWO VIEWS ([id number]) INDICATIONS: Follow up for postobstructive pneumonia TECHNIQUE: 2 views of the chest were acquired. COMPARISON: [facility], CR, XR CHEST 2VW, 04/27/2016, 2:03. FINDINGS: Surgical changes and devices: Left chest wall Port-A-Cath is stable in appearance. Lungs and pleura: Trace right-sided pleural effusion is stable. Right perihilar mass is not simply changed compared to prior examinations. Patchy opacity in the right lung base suspicious for postobs tructive pneumonia is stable. Mediastinum: Mediastinal contours are normal. Heart size is normal. Bones and chest wall: No suspicious bony abnormalities. Soft tissues appear unremarkable. IMPRESSION: Right basilar airspace opacity in trace right-sided pleural effusion suspicious for pneu monia not significantly changed compared to 04/27/16. Dictated by: Alissa Watts MD, PhD on 04/29/2016 at 11:32 Approved by: Alissa Watts MD, PhD on 04/29/2016 at 11:33
--- NOTE | 2016-04-29 11:56 | NUR ---
Social Work: Brief Note / Attempted CD Assessment Data: Pt is a 61 y/o male admitted for post obstructive pneumnoia/ lung cancer. Pt's PC is not listed, pt's insurance is [employer]. EMR reviewed. Pt reports drinking 1/2 a 5th of vodka per day with marijuana and meth use. CONSTRUCTION ELECTRICIAN met with pt at bedside to attempt CD assessment. Pt declines assessment stating that "This has been the wake up call that I need. I don't need to talk about it more." Pt states he will go home with his girlfriend in [place] at discharge and she agrees that she will not tolerate drug or alcohol use in her home. Pt declined any CD information from CONSTRUCTION ELECTRICIAN. No further d/c planning needs at this time. CONSTRUCTION ELECTRICIAN will continue to follow if needs arise. Assessment: Pt who is independent at baseline. Plan: Pt will d/c home via POV with girlfriend when medically stable. No further d/c planning needs at this time. CONSTRUCTION ELECTRICIAN will continue to follow if needs arise. JESSI Bernal
--- NOTE | 2016-04-29 13:37 | NUR ---
Social Work: Discharge Data: Pt is on day 2 of hospitalization. EMR reviewed. D/C orders are in. Pt declined CD assessment and resources. No further d/c planning needs. NON CATEGORICAL PRESCHOOL TEACHER will continue to follow if needs arise. Assessment: Pt with CD hx, independent at baseline. Plan: Pt will d/c home with his girlfriend to [place] today. No further d/c planning needs. NON CATEGORICAL PRESCHOOL TEACHER will continue to follow if needs arise. JESSI Bernal
--- NOTE | 2016-04-29 13:40 | PCM.DIMED ---
Discharge Instructions Date of Service Apr 29, 2016 Dates of Hospitalization Apr 27, 2016 at 04:54 Discharge Diagnosis Discharge Diagnosis Post Obstructive Pneumonia Diet No restrictions Activity No restrictions Call your provider Fever or Chills, Shortness of breath, Bleeding, Chest pain, Vomitting, Excessive diarrhea, Weakness (unilateral), Other (Withdrawal symptoms or other symptoms, patient is to go to [facility] ER in [place] or the nearest ER) Patient Instructions Follow-up with PCP in: 1 week (PCP in [facility]) Henry Mchugh MD Apr 29, 2016 13:40
[2016-04-29] MEDS ORDERED: NICO1PAT6 TOPICAL (13:47)
[2016-04-29] MEDS ORDERED: HYDR-4003 PO (13:47)
[2016-04-29] MEDS ORDERED: Thiamine PO (13:47)
[2016-04-29] MEDS ORDERED: PREN1TAB25 PO (13:47)
[2016-04-29] MEDS ORDERED: AMOX-366 PO (13:49)
[2016-04-29 14:13] VITALS: BP 145/92; PULSE 97; RESP 18; O2SAT 98
--- NOTE | 2016-04-29 15:08 | NUR ---
Discharge: Patient discharged to home @ approx 1445. IV d/c'd intact. Personal belongings sent with patient. Reviewed new prescriptions, home medication list, d/c instructions, and follow up appointments. Verbalized understanding. Escorted to main entrance via wheelchair accompanied by EDGE FINISHER and family.
--- NOTE | 2016-04-29 22:28 | PCM.DC.MED ---
Discharge Summary Date of Service Apr 29, 2016 Dates of Hospitalization Date of Hospital Admission Apr 27, 2016 at 04:54 Date of Discharge: Apr 29, 2016 Providers: Admitting Physician: Ximena Fisher MD Primary Care Physician: Milly Attending Physician: Ximena Fisher MD Diagnosis at Time of Discharge Diagnosis at Time of Discharge Post Obstructive Pneumonia Consultations General surgery consult with Dr. Stewart Peguero Procedures XRay, CTs & MRIs See history of present illness ECG 12 Lead Sinus at a rate of 103, QTC is 485 Brief History This is a 61-year-old male has a history of lung cancer diagnosed in 2010. He had undergone radiation therapy along with tumor resection and chemotherapy and approximately for one year he was in remission but recurred and did not want to undergo any further treatments. He is homeless currently and presents with several month history of aggressive cough. He over the past few days has developed right upper quadrant abdominal pain. Denies any fevers chills. Denies any nausea vomiting. He denies any hemoptysis. His evaluation in the emergency room includes a CTA of chest PE protocol which reveals no evidence of pulmonary emboli. Large right pleural effusion with compression atelectasis of the adjacent lung is noted. Right perihilar mass with probable developing postobstructive is seen. CT of abdomen and pelvis reveals slight wall thickening of the gallbladder with some adjacent haziness and inflammation and fluid raising the possibility of early cholecystitis. WBCs is 13.6 with 77% polys 12% lymphs. Patient was admitted to the hospital service for further evaluation and treatment. Hospital Course This is a 61-year-old male has a history of lung cancer diagnosed in 2010. He had undergone radiation therapy along with tumor resection and chemotherapy and approximately for one year he was in remission but recurred and did not want to undergo any further treatments. He is homeless currently and presents with several month history of aggressive cough. He over the past few days has developed right upper quadrant abdominal pain. Denies any fevers chills. Denies any nausea vomiting. He denies any hemoptysis. His evaluation in the emergency room includes a CTA of chest (PE protocol) which revealed no evidence of pulmonary emboli. A small right pleural effusion was seen with compression atelectasis of the adjacent lung is noted. A right perihilar mass with probable developing postobstructive is seen. CT of abdomen and pelvis reveals slight wall thickening of the gallbladder with some adjacent haziness and inflammation and fluid raising the possibility of early cholecystitis. The patient was admitted to the hospital service # Postobstructive pneumonia with right-sided pleural effusion, acute, present on admission - We will continue to treat with IV Zosyn and discontinue IV azithromycin - We will check sputum for Gram stain and culture, PCR respiratory, urine for Legionella antigen, urine for strep pneumonia antigen. We will also ask for MRSA nasopharyngeal screen - We will check Blood culture 2 final results that are pending - We will check repeat chest x-ray in a.m. # Possible acute cholecystitis, present on admission - Currently on IV Zosyn - Abdominal ultrasound showed thickened gallbladder wall. - I have asked Dr. Stewart Summers of general surgery to see the patient in consultation. He ordered a HIDA scan which was negative. No further workup was needed # History of lung carcinoma, chronic, present on admission - Patient has previously undergone resection followed by radiation therapy and chemotherapy. He has decided a long time ago that he will no longer to pursue any of these treatments for his lung carcinoma. - I pointed out to him that that was 5 years ago and suggested that he go back to the cancer treatment Center internal L [facility], where his girlfriend Charity is planning to take him, as her may be new treatments that have developed in the last 5 years since he had treatment. # EtOH dependence, chronic, present on admission - We placed patient on CIWA protocol and monitor for signs and symptoms of alcohol withdrawal - We gave thiamine, multiple vitamin, folate limitation - We did check ammonia level, blood alcohol level, urine drug screen # Tobacco dependence, chronic, present on admission - We will place on nicotine patch topically daily # DVT prophylaxis - We will continue on subcutaneous heparin # CODE STATUS - Discussed with patient and wishes DNR/DNI Disposition: We will change the patient's Zosyn to Augmentin 875 mg by mouth twice a day and discharge home today patient is agreeable as planned. Patient' s girlfriend Charity states that she is taking him back to her home in [facility]. This will give him an opportunity to go back to the cancer treatment center there and [facility] were they have all his records. Exam Vital Signs (Last) Date Time Temp Pulse Resp B/P Pulse Ox O2 Delivery O2 Flow Rate FiO2 04/29/16 14:13 36.6 97 18 145/92 98 Room Air Exam General: Patient is in no apparent distress at present time. When talking about his current condition he become somewhat emotionally labile yesterday and he thinks me for the Blanca discussion we had yesterday. Is feeling better today and is willing to go home with his girlfriend Charity to [facility].. HEENT: Head is atraumatic and normocephalic. Eyes: Pupils are equally round and reactive to light and accommodation. Extraocular muscles are intact. Sclera are white, anicteric. Subconjunctival mucosa is pink. Ears and nose are unremarkable. Oropharynx: There is no mucosal lesions, there is no thrush, there is no pharyngitis. Neck: Is supple, there are no nodes, or masses or tenderness. Chest: Breath sounds are diminished in the right lung with few scattered crackles in the right lung. The left lung will are clear to auscultation and percussion. Heart: Rate, rhythm is regular. There is no new murmur, rub or gallop. Abdomen: Good bowel sounds are present. Abdomen is soft, nontender, no organomegaly or masses were appreciated. Extremities: Are symmetrical and well perfused. There is no edema, there is no cellulitis, no rash. Neurologic: There are no focal neurological deficits. Cranial nerves II through XII are intact. There are no sensory or motor deficits. Psychiatric: Patients mood is calm and shows no sign of agitation. Genital: Deferred Rectal: Deferred Test 04/27/16 02:30 04/27/16 05:55 04/27/16 06:45 04/27/16 07:25 Lipase 31U/L (13-60) Hold Sanchez Top Tube Received (Received) Prothrombin Time 10.0sec (8.1-12.5) Prothromb Time International Ratio 0.94ratio Activated Partial Thromboplast Time 31.1sec (22.8-33.0) Ammonia 30ug/dL (18-53) Vitamin B12 Level 667pg/mL (211-946) Alcohols < 10mg/dL (0-10) Urine Legionella pneumophilia Ag Negative (Negative) Urine Color Straw (YELLOW) Urine Appearance Clear (CLEAR,HAZY) Urine pH 6.0 (5.0-8.0) Urine Specific Sterling 1.005 (1.003-1.035) Urine Protein Negativemg/dL (NEG,TRACE) Urine Glucose (UA) Negativemg/dL (NEGATIVE) Urine Ketones Negativemg/dL (NEGATIVE) Urine Occult Blood Negative (NEGATIVE) Urine Nitrite Negative (NEGATIVE) Urine Bilirubin Negative (NEGATIVE) Urine Urobilinogen Normalmg/dL (NORMAL) Urine Leukocyte Esterase Negative (NEGATIVE) Urine RBC 0-2/hpf (0-2) Urine WBC 0-5/hpf (0-5) Urine Epithelial Cells Occasional/hpf (NONE-MOD) Urine Crystals None seen (NONE SEEN) Urine Bacteria None/hpf (NONE-FEW) Urine Hyaline Casts None/lpf (NONE) Urine Granular Casts None seen (NONE SEEN) Urine Waxy Casts None seen (NONE SEEN) Urine Red Blood Cell Casts None seen (NONE SEEN) Urine White Blood Cell Casts None seen (NONE SEEN) Urine Mucus None seen (None Seen) Urine Trichomonas None seen (NONE SEEN) Urine Yeast None (NONE SEEN) Urinalysis Comment None Urine Culture Reflexed Not indicated Urine Opiates Screen Negative Urine Methadone Screen Negative Urine Barbiturates Screen Negative Urine Amphetamines Screen Positive Urine Benzodiazepines Screen Negative Urine Cocaine Metabolite Screen Negative Urine Cannabinoids Screen Positive Test 04/28/16 05:50 04/28/16 17:37 04/29/16 05:50 Troponin T 0.010ug/L (0.0-0.011) Procalcitonin 0.02ng/mL (0.00-0.08) White Blood Count 9.4th/mm3 (3.8-10.1) Red Blood Count 4.06mil/mm3 (4.40-5.80) Hemoglobin 12.5g/dL (13.8-17.2) Hematocrit 37.9% (41.0-50.0) Mean Corpuscular Volume 93.3fL (81-100) Mean Corpuscular Hemoglobin 30.8pg (27.0-35.0) Mean Corpuscular Hemoglobin Concent 33.0% (32.0-37.0) Red Cell Distribution Width 14.5% (12.3-15.4) Platelet Count 216bil/L (150-400) Neutrophils (%) (Auto) 68.8% (40-74) Lymphocytes (%) (Auto) 23.1% (14-46) Monocytes (%) (Auto) 7.6% (4-12) Eosinophils (%) (Auto) 0.2% (0-5) Basophils (%) (Auto) 0.2% (0-3) Sodium Level 140mEq/L (134-144) Potassium Level 4.2mEq/L (3.5-5.2) Chloride Level 106mEq/L (97-108) Carbon Dioxide Level 21mmol/L (18-29) Blood Urea Nitrogen 12mg/dL (8-27) Creatinine 0.64mg/dL (0.76-1.27) Estimat Glomerular Filtration Rate 136mL/min (>59) Glucose Level 102mg/dL (60-99) Calcium Level 8.5mg/dL (8.5-10.1) Magnesium Level 1.8mg/dL (1.6-2.6) Total Bilirubin 0.4mg/dL (0.0-1.2) Aspartate Amino Transf (AST/SGOT) 41U/L (0-50) Alanine Aminotransferase (ALT/SGPT) 18U/L (0-44) Alkaline Phosphatase 87U/L (25-160) Total Protein 6.2g/dL (6.4-8.4) Albumin 3.4g/dL (3.4-5.0) Microbiology Results Sputum culture shows normal suzie Blood Cultures are negative Strep pneumoniae urinary antigen is negative Nasopharyngeal swab for respiratory pathogens by PCR was negative Discharge Medications Discharge Medications ([Thiamine]) 100 MG TABLET 100 MG PO DAILY Prescribed by: CURT MCHUGH MD Amoxicillin/Clav K 875-125 mg (Augmentin 875-125 mg) 1 Each Tablet 1 TABLET PO BID Prescribed by: CURT MCHUGH MD Nicotine 21 mg/24 hr Patch (Nicotine 21 mg/24 hr Patch) 1 Each Patch.td24 1 PATCH TOPICAL DAILY Prescribed by: CURT MCHUGH MD Vit#96/Ferrous Fum/FA ( Tablet) 1 Each Tablet 1 TABLET PO DAILY Prescribed by: CURT MCHUGH MD As needed Albuterol HFA (Proair HFA) 8.5 Gm Hfa.aer.ad 2 PUFFS INHALATION Q4H PRN PRN For Shortness of Breath (Reported) Hydrocodone-Acetaminophen 5-325 mg (Hydrocodone-Acetaminophen 5-325 mg) 1 Each Tablet 1 TABLET PO QID PRN PRN For Pain Prescribed by: CURT MCHUGH MD Followup Plan Disposition: Patient is being discharged with his girlfriend Charity Friend take him to her home in [facility]. Discharge Diet: No restrictions Discharge Activity: No restrictions Follow-up with PCP in: 1 week (PCP in [facility]) Time spent Time spent on discharging this patient was greater than 35 minutes, over half of which was involved in counseling and coordination of care. Henry Mchugh MD Apr 29, 2016 22:28
== END 2016-04-29 14:46 | disposition home or self-care (01) | DRG 194 ==
LOC: EDBD 01:17 → SED 01:17 → MPC 04:54
PROVIDERS: ADMIT Specialist; ATTEND Specialist
DX: J18.9 Pneumonia, unspecified organism (principal); J90 Pleural effusion, not elsewhere classified; C34.31 Malignant neoplasm of lower lobe, right bronchus or lung; F17.210 Nicotine dependence, cigarettes, uncomplicated; F10.20 Alcohol dependence, uncomplicated; T51.0X1A Toxic effect of ethanol, accidental (unintentional), initial encounter; F12.10 Cannabis abuse, uncomplicated; Z59.0 Homelessness; Z66 Do not resuscitate